=== PATIENT | female | born 1945 | race Caucasian/White ===

== ENCOUNTER 2017-02-21 09:54 | Day surgery (SDC) | payer OTHER ==
[2017-02-21] MEDS ORDERED: TETRACAINE 0.5% OPHTH 1 DOSE AFFEYE ONE ×2 (10:00→14:34)
[2017-02-21] MEDS ORDERED: VIGAMOX 0.5% OPHTH 1 DOSE AFFEYE ONE ×5 (10:01→14:50)
[2017-02-21] MEDS ORDERED: NS 500 ML IV 500 ML IV ONE (10:03)
[2017-02-21] MEDS ORDERED: PROLENSA OPHTH 1 DOSE AFFEYE ONE (10:12)
[2017-02-21] MEDS ORDERED: ALPHAGAN-P OPHTH 1 DOSE AFFEYE ONE (10:13)
[2017-02-21] MEDS ORDERED: MYDRIACIL OPHTH 1 DOSE AFFEYE ONE ×4 (10:14→10:17)
[2017-02-21] MEDS ORDERED: AK-DILATE 2.5% OPHTH 1 DOSE OP ONE ×4 (10:14→10:17)
[2017-02-21] MEDS ORDERED: CYCLOGYL 1% OPHTH 1 DOSE OP ONE ×4 (10:14→10:17)
[2017-02-21] MEDS ORDERED: BETADINE OPHTH SOLN 5% EACHEYE ONE (14:34)
[2017-02-21] MEDS ORDERED: DUOVISC IO ONE (14:39)
[2017-02-21] MEDS ORDERED: ADRENALINE CHL INJ IJ ONE (14:39)
[2017-02-21] MEDS ORDERED: BSS OPHTH (PLAIN) 500 ML with VANCOMYCIN HCL 500 MG VIAL 25 MG, ADRENALINE CHL INJ 1 MG IR ONE ×3 (14:39)
[2017-02-21] MEDS ORDERED: XYLOCAINE-MPF 1% IJ ONE (14:39)
[2017-02-21] MEDS ORDERED: VERSED ONE (15:36)
[2017-02-21 16:51] VITALS: BP 162/82
== END 2017-02-21 15:15 | disposition home or self-care (01) ==
LOC: SURG1 09:54
PROVIDERS: ATTEND Ophthalmology
PROC: 08RK3JZ Replacement of Left Lens with Synthetic Substitute, Percutaneous Approach (ICD-10-PCS; principal; 2017-02-21 20:45)
PROC: 08DK3ZZ Extraction of Left Lens, Percutaneous Approach (ICD-10-PCS; principal; 2017-02-21 20:45)
DX: H25.12 Age-related nuclear cataract, left eye (principal); H25.012 Cortical age-related cataract, left eye
CPT/HCPCS: 99100; A4217; J0170; J2250; J3370

== ENCOUNTER 2017-03-07 07:20 | Day surgery (SDC) | payer OTHER ==
[2017-03-07] MEDS ORDERED: TETRACAINE 0.5% OPHTH 1 DOSE AFFEYE ONE ×2 (08:03→10:16)
[2017-03-07] MEDS ORDERED: VIGAMOX 0.5% OPHTH 1 DOSE AFFEYE ONE ×5 (08:05→10:49)
[2017-03-07] MEDS ORDERED: NS 500 ML IV 500 ML IV ONE (08:05)
[2017-03-07] MEDS ORDERED: PROLENSA OPHTH 1 DOSE AFFEYE ONE (08:17)
[2017-03-07] MEDS ORDERED: MYDRIACIL OPHTH 1 DOSE AFFEYE ONE ×2 (08:18→08:19)
[2017-03-07] MEDS ORDERED: CYCLOGYL 1% OPHTH 1 DOSE OP ONE ×2 (08:18→08:19)
[2017-03-07] MEDS ORDERED: AK-DILATE 2.5% OPHTH 1 DOSE OP ONE ×2 (08:18→08:19)
[2017-03-07] MEDS ORDERED: ALPHAGAN-P OPHTH 1 DOSE AFFEYE ONE (08:18)
[2017-03-07] MEDS ORDERED: BETADINE OPHTH SOLN 5% EACHEYE ONE (10:16)
[2017-03-07] MEDS ORDERED: DUOVISC IO ONE ×2 (10:19→10:39)
[2017-03-07] MEDS ORDERED: ADRENALINE CHL INJ IJ ONE ×2 (10:19→10:39)
[2017-03-07] MEDS ORDERED: XYLOCAINE-MPF 1% IJ ONE ×2 (10:19→10:39)
[2017-03-07] MEDS ORDERED: BSS OPHTH (PLAIN) 500 ML with VANCOMYCIN HCL 500 MG VIAL 25 MG, ADRENALINE CHL INJ 1 MG IR ONE ×6 (10:20)
[2017-03-07] MEDS ORDERED: DIPRIVAN VIAL ONE (10:34)
[2017-03-07 11:26] VITALS: BP 169/78
== END 2017-03-07 11:15 | disposition home or self-care (01) ==
LOC: SURG1 07:20
PROVIDERS: ATTEND Ophthalmology
PROC: 08RJ3JZ Replacement of Right Lens with Synthetic Substitute, Percutaneous Approach (ICD-10-PCS; principal; 2017-03-07 11:15)
PROC: 08DJ3ZZ Extraction of Right Lens, Percutaneous Approach (ICD-10-PCS; principal; 2017-03-07 11:15)
DX: H25.11 Age-related nuclear cataract, right eye (principal); H25.011 Cortical age-related cataract, right eye
CPT/HCPCS: 99100; A4217; J0170; J3370; J3490